=== PATIENT | female | born 1940 | race Caucasian/White ===

== ENCOUNTER → 2024-07-12 | Outpatient (CLI) | payer MEDICARE ==
[2024-07-12 19:07] LABS: Basophils # (A) 0.08 X 10*3/uL (0.00-0.10); Basophils % (A) 1.1 %; Eosinophils # (A) 0.15 X 10*3/uL (0.04-0.35); HCT 43.1 % (37.2-46.3); HGB 14.5 g/dL (12.0-15.0); Lymphocytes # (A) 2.25 X 10*3/uL (0.90-5.00); Lymphocytes % (A) 30.1 %; MCH 29.3 pg (27.0-32.0); MCHC 33.6 g/dL (32.0-37.0); MCV 87.1 FL (80.0-97.0); Mean Platelet Volume 10.6 FL (9.5-12.2); Monocytes # (A) 0.67 X 10*3/uL (0.20-1.00); NRBC Per 100 WBC 0 X 10*3/uL (0.00-0.01); Neutrophils # (A) 4.31 X 10*3/uL (1.80-7.70); Neutrophils % (A) 57.7 %; Platelet Count 232 X 10*3/uL (140-440); RBC 4.95 X 10*6/uL (4.10-5.20); RDW 12.6 % (11.5-14.5); WBC 7.47 X 10*3/uL (4.50-10.00)
[2024-07-12 19:10] LABS: BUN/Creat Ratio 20.71 Ratio (12.00-20.00); Blood Urea Nitrogen 14.5 mg/dL (9.0-27.0); Calcium 9.8 mg/dL (8.7-10.3); Carbon Dioxide 26.3 mmol/L (21.6-31.8); Chloride 99 mmol/L (96-109); Glucose 95 mg/dL (70-110); INR 0.95 sec (0.93-1.11); Potassium 4.5 mmol/L (3.5-5.5); Prothrombin Time 10.9 sec (9.9-11.9); Sodium 137 mmol/L (135-145)
== END | disposition home or self-care (01) ==
LOC: LABPAT 13:57
PROVIDERS: ATTEND Orthopaedic Surgery
DX: Z01.812 Encounter for preprocedural laboratory examination (principal); Z22.322 Carrier or suspected carrier of Methicillin resistant Staphylococcus aureus; S42.291K Other displaced fracture of upper end of right humerus, subsequent encounter for fracture with nonunion
CPT/HCPCS: 36415; 80048; 85025; 85610; 87070

== ENCOUNTER 2024-07-27 06:47 | Day surgery (SDC) | payer MEDICARE ==
--- NOTE | 2024-07-26 10:11 | P.HPOR ---
History of Present Illness H&P Date: 07/26/24 Chief Complaint: Right shoulder pain and weakness The patient is an 84-year-old female who presents with right shoulder pain and weakness after sustaining a right proximal humerus fracture 5 years ago that was treated in a sling. She is unable to raise her arm overhead. She notes pain with any attempted motion. She notes significant functional deficits. Review of Systems Per HPI Past Medical History Past Medical History: Asthma, Cancer, Hypertension, Musculoskeletal Disorder, Osteoarthritis (OA), Pulmonary Embolus (PE), Skin Disorder Additional Past Medical History / Comment(s): environmental allergies-gets an allergy shot weekly, hx. skin cancer, hx. of falls, fx. pelvis & humerus 6 yrs. ago PE @that time, osteoporosis History of Any Multi-Drug Resistant Organisms: None Reported Past Surgical History: Ear Surgery, Orthopedic Surgery, Tonsillectomy Additional Past Surgical History / Comment(s): ORIF right wrist, ear surg. in past for mastoiditis, D & C, skin cancer removed from face, nasal surg., cataracts removed Past Anesthesia/Blood Transfusion Reactions: Previous Problems w/ Anesthesia Additional Past Anesthesia/Blood Transfusion Reaction / Comment(s): elevated BP after one of nasal surgeries Smoking Status: Former smoker - Past Family History Mother Family Medical History: No Reported History Medications and Allergies Home Medications Medication Instructions Recorded Confirmed Type Albuterol Inhaler [Ventolin Hfa 1 - 2 puff INHALATION Q6H PRN 06/01/24 07/24/24 History Inhaler] Celecoxib [CeleBREX] 200 mg PO DAILY PRN 06/01/24 07/24/24 History Cetirizine HCl [Zyrtec] 10 mg PO DAILY 06/01/24 07/24/24 History Enalapril [Vasotec] 20 mg PO DAILY 06/01/24 07/24/24 History Sertraline [Zoloft] 50 mg PO DAILY 06/01/24 07/24/24 History Acetaminophen [Tylenol] 650 mg PO Q6H 07/24/24 07/24/24 History Loperamide HCl [Imodium A-D] 2 mg PO BID PRN 07/24/24 07/24/24 History Allergies Allergy/AdvReac Type Severity Reaction Status Date / Time No Known Allergies Allergy Verified 07/24/24 17:33 Physical Examination - Shoulder right Appearance: effusion Tenderness with palpation: anterior, bicipital groove Pain: other (Pain with any attempted range of motion) ROM: forward flexion: 20 degrees ROM: internal rotation: 0 ROM: external rotation: 10 degrees Tests: internal impingement tests: positive, external impingment tests: positive Results The patient is a well-developed well-nourished female approximately 5 foot 3, 140 pounds of mesomorphic habitus. HEENT exam is nonfocal, neck is supple. She is tender about the right glenohumeral joint and proximal humerus. She has limited active range of motion. Impingement test, Neer test are positive. Her distal neurovascular exam otherwise appears intact in the right upper extremity. - Diagnostic results Shoulder x-ray: image reviewed (X-rays of the right shoulder obtained the office show a proximal humeral nonunion with significant displacement.) Assessment and Plan Assessment: Right proximal humeral nonunionsymptomatic Plan: I talked to the patient at length regarding her condition along with treatment options. At this point she is quite limited because of pain along with significant weakness and functional deficits despite attempted conservative measures. After a thorough discussion she opts to proceed with surgery. We will plan to proceed with a right reverse total shoulder arthroplasty. Risks and benefits were discussed at length in layman's terms. We will likely keep the patient for 23 or hold postoperatively.
[~2024-07-27 06:47] MED LIST: TRANEXAMIC 1,000 MG/100ML-NACL 1,000 MG in SALINE 1 100ML.BAG IVPB PRN
[2024-07-27] MEDS ORDERED: HYDROmorphone 0.5 MG/0.5 ML SYRINGE IVP PRN ×2 (07:00→09:43)
[2024-07-27] MEDS ORDERED: MIDAZOLAM 2 MG/2 ML VIAL IV PRN (07:00)
[2024-07-27] MEDS: ACETAMINOPHEN TAB 500 MG TAB PO PRN (07:03)
[2024-07-27] MEDS: LACTATED RINGERS 1,000 ML IV SCH (07:03)
[2024-07-27] MEDS: MELOXICAM 7.5 MG TAB PO PRN (07:03)
[2024-07-27] MEDS: ONDANSETRON 4 MG/2 ML VIAL IVP ONE (07:04)
[2024-07-27] MEDS: DEXAMETHASONE SOD PHOSPHATE 4 MG/ML 1 ML VIAL IV ONE (07:04)
[2024-07-27] MEDS: IV FLUID CONTINUATION 1,000 ML IV ONE ×2 (07:05→11:45)
[2024-07-27] MEDS: fentaNYL (PF) 50 MCG/ML 2 ML AMP IVP STA (07:11)
--- NOTE | 2024-07-27 07:22 | P.ANPRN ---
Procedure Note - Anesthesia - Nerve Block Performed Right Interscalene Single Time Out Performed: Yes Date of Procedure: 07/27/24 Procedure Start Time: :11 Procedure Stop Time: 07:16 Location of Patient: PreOp Indication: Acute Post-Operative Pain, Analgesia, Requested by Surgeon Sedation Type: Sedate with meaningful contact maintained Preparation: Sterile Prep Position: Sitting Catheter: None Needle Types: Pajunk Needle Gauge: 21 Ultrasound used to visualize needle placement: Yes Ultrasound used to observe medication spread: Yes Injectate: 0.5% Ropivacaine (see comment for volume) ([id number]. Negative stimulation @0.5MA) Blood Aspirated: No Pain Paresthesia on Injection Noted: No Resistance on Injection: Normal Image Stored and Saved: Yes Events: Uneventful and Well Tolerated
[2024-07-27] MEDS ORDERED: SUCCINYLCHOLINE CHLORIDE 200 MG/10 ML VIAL IV ONE (07:32)
[2024-07-27] MEDS ORDERED: ROCURONIUM 10 MG/ML (5 ML VIAL) IV ONE (07:32)
[2024-07-27] MEDS ORDERED: PHENYLEPHRINE 10 MG/ML VIAL ONE (07:32)
[2024-07-27] MEDS ORDERED: DEXAMETHASONE SOD PHOSPHATE 4 MG/ML 1 ML VIAL ONE (07:32)
[2024-07-27] MEDS ORDERED: NEOSTIGMINE 1 MG/ML 10 ML VIAL ONE (07:32)
[2024-07-27] MEDS ORDERED: GLYCOPYRROLATE 0.2 MG/ML 2 ML VIAL ONE (07:32)
[2024-07-27] MEDS ORDERED: TRANEXAMIC 1,000 MG/100ML-NACL PREMIX BAG ONE (07:32)
[2024-07-27] MEDS ORDERED: PROPOFOL 10 MG/ML 20 ML VIAL IV ONE (07:32)
[2024-07-27] MEDS ORDERED: fentaNYL (PF) 50 MCG/ML 2 ML AMP ONE (07:32)
[2024-07-27] MEDS ORDERED: LIDOCAINE 1% INJ 10MG/ML (20 ML MDV) ONE (07:32)
[2024-07-27] MEDS ORDERED: ROPIVACAINE 5 MG/ML 30 ML VIAL ONE (07:32)
[2024-07-27] MEDS: ceFAZolin 2 GM in DEXTROSE 5% IN WATER 50 ML IVPB PRN (07:37)
[2024-07-27] MEDS ORDERED: SENNOSIDES-DOCUSATE SODIUM 1 EACH TAB PO PRN (09:43)
[2024-07-27] MEDS ORDERED: hydrOXYzine pamoate 25 MG CAP PO PRN (09:43)
--- NOTE | 2024-07-27 10:08 | P.OP ---
Date of Procedure: 07/27/24 Preoperative Diagnosis: Symptomatic right proximal humeral nonunion Postoperative Diagnosis: Same Procedure(s) Performed: Right reverse total shoulder arthroplasty Implants: [employer] Xtend size 8 cemented longstem, size 1 epiphysis, 38 mm standard glenosphere with standard baseplate, 38+6 articular surface Anesthesia: guillermina MCGEE Surgeon: Eric León Senior Project Architect #1: Marlon Addison Estimated Blood Loss (ml): 200 Pathology: none sent Condition: stable Disposition: PACU Indications for Procedure: The patient is an 84-year-old female who presents after falling 5 years ago sustaining a proximal humerus fracture that went on to nonunion with persistent pain and inability to raise her arm. A discussion of the risks and benefits of operative intervention versus continued conservative measures was made with the patient. She opted to proceed with surgery. Operative risks include infection, neurovascular injury, development of blood clots, fracture, instability, possible component loosening/failure and possible need for subsequent procedures was discussed. Informed consent was obtained. Operative Findings: As below Description of Procedure: The patient was brought to the operating room, and after induction of general anesthesia was placed in a beachchair position. The bony prominences were appropriately padded. The right upper extremity was prepped and draped in normal fashion. The bony outlines the coracoid process, distal clavicle, and acromion were outlined with a skin marker. A pulse centimeter deltopectoral incision was made lateral to the coracoid process. Skin was incised sharply. Subcutaneous tissues were divided bluntly. Electrocautery was used for hemostasis. The cephalic vein was identified and gently retracted laterally with the deltoid. The deltopectoral was bluntly developed. Subdeltoid adhesions were then released. The self-retaining retractor was placed. The conjoined tendon was retracted medially and the deltoid laterally. The proximal humeral fragment was then identified. A sagittal saw was used to separate the greater and lesser tuberosities. The head fragment was excised. The tuberosities were tagged with #2 Ethibond suture. Attention was then paid towards preparing the glenoid. An anterior and posterior retractors placed. The labrum was released from the 12-6 o'clock position. Remaining biceps was removed as well. A guidepin was placed in the inferior aspect of the glenoid with the guide slightly tilting inferior. The reamer was used down to a bleeding bony surface. The central peg hole was drilled. The standard baseplate was inserted with good purchase. Inferior, superior, and posterior locking screws the appropriate length were placed. Good purchase was obtained. The 38 mm glenosphere was inserted over a guidewire. This was fully seated. Care was taken to avoid any soft tissue interposition. Attention was then paid towards preparing the proximal humerus. The canal was reamed by hand up to a size 8 planning on a long stem. A size 8 stem with a size 1 epiphysis was placed and 20 of retroversion. Trial reduction was obtained with a 38 mm + 6 articular surface. The shoulder was taken through range of motion. He was felt to be stable in flexion and extension with internal and external rotation. I felt there was adequate christian of soft tissue tension judging off the conjoined tendon. The shoulder was gently dislocated. The trial components were then removed. The final size 8 cemented long stem along with a size 1 epiphysis was fully seated. There was good rotational stability. The 38 mm + 6 articular surface was impacted. The shoulder again was gently reduced and taken through range of motion. Again it was felt to be stable in all planes. Pulsa tile lavage was utilized. The tuberosities were reattached to each other with #2 Ethibond suture. The rotator interval was closed in a similar fashion. The deltopectoral interval was closed with interrupted 2-0 Vicryl sutures. The skin was reapproximated with 3-0 subcuticular Prolene suture. Steri-Strips were applied. A sterile dressing was applied. A sling was placed. The patient was awoken from general anesthesia and transferred to recovery room in good condition. Blood loss was estimated at 200 mL. No complications were incurred. Sponge and needle counts were correct at the end the case. Marlon KAMARA assisted during the major components of the case to include exposure, glenoid and humeral preparation, implantation, and closure.
--- NOTE | 2024-07-27 10:17 | XR ---
EXAMINATION TYPE: XR shoulder limited RT DATE OF EXAM: 07/27/2024 10:13 AM COMPARISON: None. CLINICAL INDICATION: Female, 84 years old with history of s/p reverse right total shoulder arthroplas ty, pain TECHNIQUE: AP view(s) obtained. FINDINGS: Placement of a left shoulder prosthesis with glenoid and humeral components. Medullary kellie is present . Postsurgical soft tissue changes are evident. IMPRESSION: 1. Post right shoulder prosthesis placement [facility], , 07/27/2024 10:15 AM
[2024-07-27 15:37] LABS: Basophils # (A) 0.02 10*3/uL (0.00-0.10); Basophils % (A) 0.1 %; HCT 35.8 % (37.2-46.3); HGB 12.2 g/dL (12.0-15.0); Lymphocytes # (A) 0.57 10*3/uL (0.90-5.00); Lymphocytes % (A) 3.9 %; MCHC 34.1 g/dL (32.0-37.0); Monocytes # (A) 0.36 10*3/uL (0.20-1.00); Monocytes % (A) 2.5 %; Neutrophils # (A) 13.52 10*3/uL (1.80-7.70); Neutrophils % (A) 93.2 %; Platelet Count 194 10*3/uL (140-440); RBC 4.07 10*6/uL (4.10-5.20); RDW 12.7 % (11.5-14.5); WBC 14.52 10*3/uL (4.50-10.00)
[2024-07-27] MEDS: ceFAZolin 2 GM in DEXTROSE 5% IN WATER 50 ML IVPB SCH (17:19)
--- NOTE | 2024-07-27 21:10 | P.CONS ---
History of Present Illness - Reason for Consult Consult date: 07/27/24 Medical management Requesting physician: Eric León - Chief Complaint Right shoulder surgery - History of Present Illness Very pleasant 84-year-old patient follows with Dr. Espinoza. Chronic medical conditions include COPD, hypertension, osteoarthritis, anxiety depression. 5 years ago patient had a proximal humerus fracture that was treated with nonsurgical intervention. She has significant functional deficits. Now patient is undergone right reverse total shoulder arthroplasty. Right arm in a sling. Some pain is present. No nausea vomiting. Denies any cardiac history. Review of systems: GEN.: None EYES: None HEENT: None NECK: None RESPIRATORY: Chronic intermittent clear sputum production e CARDIOVASCULAR: None GASTROINTESTINAL: None GENITOURINARY: None MUSCULOSKELETAL: Joint pains LYMPHATICS: None HEMATOLOGICAL: None PSYCHIATRY: None NEUROLOGICAL: None Social history: Lives alone. Smoked for 35 years 1 pack a day. Stopped a while ago. Alcohol rarely Physical examination: VITAL SIGNS: 97.9, 81, 17, 130 x 71, 95% room air GENERAL: BMI 25, lying bed awake comfortable. EYES: Pupils equal. Conjunctiva renay l. HEENT: External appearance of nose and ears normal, oral cavity grossly normal. NECK: JVD not raised; masses not palpable. HEART: First and second heart sounds are normal; no edema. LUNGS: Respiratory rate normal; decreased breath sounds. ABDOMEN: Soft, nontender, liver spleen not palpable, no masses palpable. PSYCH: Alert and oriented x3; mood and affect renay l. MUSCULOSKELETAL:No Clubbing/cyanosis;muscles-grossly intact. OA in many joint specially the hand. Dressing over the right shoulder. Right arm in a sling NEUROLOGICAL: Cranial nerves grossly intact; no facial asymmetry, power and sensation grossly intact. LYMPHATICS: No lymph nodes palpable in the axilla and neck INVESTIGATIONS, reviewed in the clinical context: July 27, 2024: White count 14.5 hemoglobin 12.2 platelets 194 July 12: Creatinine 0.7 Assessment plan: - Right reverse total shoulder arthroplasty by Dr. Armando León. Pain controlled. Right arm in a sling. - Depression and anxiety Zoloft 50 mg a day - Essential hypertension Vasotec 20 mg a day - COPD in a prior smoker Ventolin as needed - Primary osteoarthritis of multiple joints Pain medication as needed - Full code Care was discussed with patient. Questions answered. Aspirin for DVT prophylaxis. Did get IV cefazolin for infection prophylaxis. And 1 dose of Decadron. Thank you Dr. León Past Medical History Past Medical History: Asthma, Cancer, Hypertension, Musculoskeletal Disorder, Osteoarthritis (OA), Pulmonary Embolus (PE), Skin Disorder Additional Past Medical History / Comment(s): environmental allergies-gets an allergy shot weekly, hx. skin cancer, hx. of falls, fx. pelvis & humerus 6 yrs. ago PE @that time, osteoporosis History of Any Multi-Drug Resistant Organisms: None Reported Past Surgical History: Ear Surgery, Orthopedic Surgery, Tonsillectomy Additional Past Surgical History / Comment(s): ORIF right wrist, ear surg. in past for mastoiditis, D & C, skin cancer removed from face, nasal surg., cataracts removed Past Anesthesia/Blood Transfusion Reactions: Previous Problems w/ Anesthesia Additional Past Anesthesia/Blood Transfusion Reaction / Comm: elevated BP after one of nasal surgeries Past Psychological History: Anxiety, Depression Smoking Status: Former smoker Past Alcohol Use History: Rare Additional Past Alcohol Use History / Comment(s): quit smoking @age 46, smoked for 35 yrs., 1ppd Past Drug Use History: None Reported - Past Family History Mother Family Medical History: No Reported History Medications and Allergies Home Medications Medication Instructions Recorded Confirmed Type Albuterol Inhaler [Ventolin Hfa 1 - 2 puff INHALATION Q6H PRN 06/01/24 07/24/24 History Inhaler] Celecoxib [CeleBREX] 200 mg PO DAILY PRN 06/01/24 07/24/24 History Cetirizine HCl [Zyrtec] 10 mg PO DAILY 06/01/24 07/24/24 History Enalapril [Vasotec] 20 mg PO DAILY 06/01/24 07/24/24 History Sertraline [Zoloft] 50 mg PO DAILY 06/01/24 07/24/24 History Acetaminophen [Tylenol] 650 mg PO Q6H 07/24/24 07/24/24 History Loperamide HCl [Imodium A-D] 2 mg PO BID PRN 07/24/24 07/24/24 History Aspirin [Adult Low Dose Aspirin EC] 81 mg PO BID #60 tab 07/27/24 Rx Sennosides/Docusate Sodium [Senna 1 each PO DAILY #20 capsule 07/27/24 Rx Plus 8.6-50 mg Softgel] Allergies Allergy/AdvReac Type Severity Reaction Status Date / Time No Known Allergies Allergy Verified 07/27/24 07:10 Physical Exam Vitals: Vital Signs Temp Pulse Pulse Resp BP BP Pulse Ox 07/27/24 19:24 97.9 F 81 17 130/71 95 07/27/24 16:25 86 145/79 95 07/27/24 16:10 85 122/75 94 L 07/27/24 15:55 92 127/80 95 07/27/24 15:40 91 147/113 91 L 07/27/24 15:24 97 169/93 95 07/27/24 15:09 79 147/71 94 L 07/27/24 14:54 80 139/76 92 L 07/27/24 14:39 97.3 F L 82 18 157/85 93 L 07/27/24 13:15 68 16 124/78 96 07/27/24 12:45 71 16 126/68 94 L 07/27/24 12:30 67 16 133/70 96 07/27/24 12:15 68 16 119/67 96 07/27/24 12:00 58 L 16 128/75 97 07/27/24 11:45 60 16 127/67 94 L 07/27/24 11:30 72 16 136/76 94 L 07/27/24 11:15 69 16 129/73 98 07/27/24 10:58 70 16 120/60 95 07/27/24 10:43 72 16 129/80 96 07/27/24 10:28 57 L 14 82/56 87 L 07/27/24 10:13 123 H 18 144/73 98 07/27/24 09:58 97 F L 90 16 151/79 98 07/27/24 07:20 77 16 163/81 98 07/27/24 07:00 98.8 F 78 16 211/91 97 Intake and Output 07/27/24 07/27/24 07/27/24 06:59 14:59 22:59 Intake Total 1125 Output Total 200 Balance 925 Intake: IV 1125 Output: Estimated Blood Loss 200 Other: # Voids 1 # Bowel Movements 1 Weight 64.1 kg 64.1 kg Results CBC & Chem 7: 07/27/24 15:15 Labs: Abnormal Lab Results - Last 24 Hours (Table) 07/27/24 Range/Units 15:15 WBC 14.52 H (4.50-10.00) 10*3/uL RBC 4.07 L (4.10-5.20) 10*6/uL Hct 35.8 L (37.2-46.3) % Immature Gran # 0.05 H (0.00-0.04) 10*3/uL Neutrophils # 13.52 H (1.80-7.70) 10*3/uL Lymphocytes # 0.57 L (0.90-5.00) 10*3/uL Eosinophils # 0.00 L (0.04-0.35) 10*3/uL
[2024-07-27] MEDS: HYDROcodone/APAP 5-325MG 1 EACH TAB PO PRN (22:05)
[2024-07-27] MEDS: ASPIRIN 81 MG PO SCH (22:06)
[2024-07-28 01:58] VITALS: TEMP 98.3
[2024-07-28] MEDS: HYDROmorphone 0.5 MG/0.5 ML SYRINGE IVP PRN (03:44)
[2024-07-28] MEDS: SERTRALINE 50 MG TAB PO SCH (08:25)
[2024-07-28] MEDS: lisinopriL 20 MG TAB PO SCH (08:25)
[2024-07-28] MEDS: LORATADINE 10 MG TAB PO SCH (08:25)
[2024-07-28] MEDS: HYDROcodone/APAP 5-325MG 1 EACH TAB PO PRN (08:30)
--- NOTE | 2024-07-28 08:55 | P.DS ---
Providers Date of admission: 07/27/2024 Expected date of discharge: 07/28/24 Attending physician: Eric León Consults: 07/27/24 09:43 Consult Physician Routine Consulting Provider: Lux Espinoza Reason/Comments: medical management s/p reverse right total shoulder arthroplasty Do you want consulting provider notified?: Yes Primary care physician: Lux Espinoza Hospital Course: Date of admission: 07/27/2024 Date of discharge: 07/28/2024 Admission diagnosis: Symptomatic right proximal humeral nonunion Attending physician: Dr. León Surgical procedures: Reverse right total shoulder arthroplasty Brief history: Patient is a 84-year-old female with a history of symptomatic right proximal humeral nonunion. At this point patient has failed conservative treatment measures and has opted to proceed with a elective reverse right total shoulder arthroplasty. Hospital course: Details of patient's surgery can be found in operative report. Patient tolerated the procedure well and was subsequently transported to orthopedic floor. Patient's orthopeidc and medical care was provided daily. Patient had daily laboratory tests performed for evaluation of overall blood counts. Patient had daily physical therapy to include strengthening range of motion as well as education with walker ambulation. Patient was treated with aspirin for their postoperative DVT prophylaxis during their inpatient stay. Patient was noted to have a relatively uneventful postoperative course. Patient reported satisfactory pain control with oral pain medications by postoperative day 1. Patient showed satisfactory progress with physical therapy. Patient moved steadily through the program and had no difficulty meeting the goals by postoperative day 1. Given patient's otherwise satisfactory course and having met physical therapy goals, plan is to discharge patient home on postoperative day 1. Discharge condition/disposition: Patient will be discharged home in stable condition. Discharge medications: Instructions are given on resumption of patient's normal daily medications per primary care recommendation, in addition patient will be prescribed [place]; aspirin 81 mg twice daily; senna Orthopedic Discharge Instructions: 1. Wound care and infection precautions, keep incision dry and covered while showering, no lotions, creams, moisturizers. No soaking, pools, hot tubs. Do not scrub over incision. 2. Nonweightbearing right upper extremity until follow-up. 3. Ice when necessary. Do not exceed 20 minutes per hour with ice pack. 4. Utilize sling to right upper extremity until seen at first follow up appointment. 5. Pain meds and anticoagulants per prescription. 6. Pain medication has potential to cause constipation. Increase oral fluid and fiber intake. Contact primary care provider if you have not had a bowel movement within 48 hours after discharge. 7. No anti-inflammatory medication until discussed at first post operative visit, this including Motrin, Aleve, Mobic, Diclofenac. 8. Follow up in office at 2 weeks postop with Scott Sanz PA-C / Marlon Addison PA-C 9. Follow up with your primary care doctor 7-10 days after discharge. 10. Contact [facility] with any questions, . Keep incision clean, dry, intact. While showering, cover dressing with Saran wrap. Keep fusion tape on until follow-up appointment in office in 2 weeks Assessment: Symptomatic right proximal humeral nonunion Procedures: Right reverse total shoulder arthroplasty Patient Condition at Discharge: Good Plan - Discharge Summary Discharge Rx Participant: Yes New Discharge Prescriptions: New Aspirin [Adult Low Dose Aspirin EC] 81 mg PO BID #60 tab HYDROcodone/APAP 5-325MG [[place] 5-325] 1 - 2 tab PO Q6HR PRN #32 tab PRN Reason: Pain Sennosides/Docusate Sodium [Senna Plus 8.6-50 mg Softgel] 1 each PO DAILY #20 capsule No Action Celecoxib [CeleBREX] 200 mg PO DAILY PRN PRN Reason: Pain Albuterol Inhaler [Ventolin Hfa Inhaler] 1 - 2 puff INHALATION Q6H PRN PRN Reason: Shortness Of Breath Acetaminophen [Tylenol] 650 mg PO Q6H Sertraline [Zoloft] 50 mg PO DAILY Enalapril [Vasotec] 20 mg PO DAILY Cetirizine HCl [Zyrtec] 10 mg PO DAILY Loperamide HCl [Imodium A-D] 2 mg PO BID PRN PRN Reason: Diarrhea Discharge Medication List Albuterol Inhaler [Ventolin Hfa Inhaler] 1 - 2 puff INHALATION Q6H PRN 06/01/24 [History] Celecoxib [CeleBREX] 200 mg PO DAILY PRN 06/01/24 [History] Cetirizine HCl [Zyrtec] 10 mg PO DAILY 06/01/24 [History] Enalapril [Vasotec] 20 mg PO DAILY 06/01/24 [History] Sertraline [Zoloft] 50 mg PO DAILY 06/01/24 [History] Acetaminophen [Tylenol] 650 mg PO Q6H 07/24/24 [History] Loperamide HCl [Imodium A-D] 2 mg PO BID PRN 07/24/24 [History] Aspirin [Adult Low Dose Aspirin EC] 81 mg PO BID #60 tab 07/27/24 [Rx] Sennosides/Docusate Sodium [Senna Plus 8.6-50 mg Softgel] 1 each PO DAILY #20 capsule 07/27/24 [Rx] HYDROcodone/APAP 5-325MG [[place] 5-325] 1 - 2 tab PO Q6HR PRN #32 tab 07/28/24 [Rx] Follow up Appointment(s)/Referral(s): Marlon Addison PAC [PHYSICIAN AGRICULTURE LABORATORY TECHNICIAN] - 2 Weeks Patient Instructions/Handouts: Shoulder Arthroplasty (GEN) Activity/Diet/Wound Care/Special Instructions: Orthopedic Discharge Instructions: 1. Wound care and infection precautions, keep incision dry and covered while showering, no lotions, creams, moisturizers. No soaking, pools, hot tubs. Do not scrub over incision. 2. Nonweightbearing right upper extremity until follow-up. 3. Ice when necessary. Do not exceed 20 minutes per hour with ice pack. 4. Utilize sling to right upper extremity until seen at first follow up appointment. 5. Pain meds and anticoagulants per prescription. 6. Pain medication has potential to cause constipation. Increase oral fluid and fiber intake. Contact primary care provider if you have not had a bowel movement within 48 hours after discharge. 7. No anti-inflammatory medication until discussed at first post operative visit, this including Motrin, Aleve, Mobic, Diclofenac. 8. Follow up in office at 2 weeks postop with Scott Sanz PA-C / Marlon Addison PA-C 9. Follow up with your primary care doctor 7-10 days after discharge. 10. Contact [facility] with any questions, . Keep incision clean, dry, intact. While showering, cover dressing with Saran wrap. Keep fusion tape on until follow-up appointment in office in 2 weeks Discharge Disposition: HOME SELF-CARE
--- NOTE | 2024-07-28 08:58 | P.PN ---
Subjective Progress Note Date: 07/28/24 Principal diagnosis: Symptomatic right proximal humeral nonunion Patient was seen at bedside this morning sitting up in chair with sling present to right upper extremity and bulky dressing in place over right shoulder. Patient says she has been up walking around the room under her own power and has been urinating without any issue since surgery. Patient says she is looking f orward to going home today. Patient says she will be able to have some family/friends help her out while she is home initially over the first couple days. Patient says she fairly independent at baseline. Patient denies any other issues at this time. Objective - Vital Signs Vital signs: Vital Signs Temp 98.3 F 07/28/24 01:58 Pulse 77 07/28/24 01:58 Resp 17 07/28/24 01:58 BP 128/84 07/28/24 01:58 Pulse Ox 89 L 07/28/24 01:58 FiO2 Intake & Output 07/27/24 07/28/24 07/28/24 18:59 06:59 18:59 Intake Total 1125 Output Total 200 Balance 925 Weight 64.1 kg Intake: IV 1125 Output: Estimated Blood Loss 200 Other: Voiding Method Toilet # Voids 1 0 # Bowel Movements 1 - Exam Right shoulder: Incision is clean, dry, and intact. The bulky dressing is in good condition. There is minimal soft tissue swelling and ecchymosis surrounding the medial and lateral aspects of the incision. Calf is soft, no tenderness with palpation. Plantar flexion, dorsiflexion, EHL, FHL are intact. Sensory exam to light touch throughout the extremity is intact, dorsal pedis pulses 2+. - Labs CBC & Chem 7: 07/27/24 15:15 Labs: Abnormal Lab Results - Last 24 Hours (Table) 07/27/24 Range/Units 15:15 WBC 14.52 H (4.50-10.00) 10*3/uL RBC 4.07 L (4.10-5.20) 10*6/uL Hct 35.8 L (37.2-46.3) % Immature Gran # 0.05 H (0.00-0.04) 10*3/uL Neutrophils # 13.52 H (1.80-7.70) 10*3/uL Lymphocytes # 0.57 L (0.90-5.00) 10*3/uL Eosinophils # 0.00 L (0.04-0.35) 10*3/uL Assessment and Plan Assessment: Symptomatic right proximal humeral nonunion Postop day 1 status post reverse right total shoulder arthroplasty Plan: 1. Symptomatic right proximal humeral nonunion -surgery performed yesterday, 07/27/2024reverse right total shoulder arthroplasty. Patient stable bedside this morning with sling present to right upper extremity. Dressing in place over right shoulder. Dressing appears to be clean, dry, intact. Pain under well-controlled with Hecker. Continue aspirin twice a day for DVT prophylaxis. Discharge patient home today with home care. 2. Appreciate medical management 3. Pain management -Hecker 4. DVT prophylaxis -aspirin 81 mg twice daily 5. GI prophylaxis -senna 6. PT/OT -nonweightbearing right upper extremity. Maintain in sling 7. Encourage incentive spirometer use 8. Discharge planning -discharge home today with home care. Time with Patient: Less than 30
[2024-07-28 09:33] VITALS: RESP 18
[2024-07-28 10:38] VITALS: BP 130/68; PULSE 74
--- NOTE | 2024-07-28 19:16 | P.PN ---
Progress Note - Text Progress Note Date: 07/28/24 - Chief Complaint Right shoulder surgery - History of Present Illness Very pleasant 84-year-old patient follows with Dr. Espinoza. Chronic medical conditions include COPD, hypertension, osteoarthritis, anxiety depression. 5 years ago patient had a proximal humerus fracture that was treated with nonsurgical intervention. She has significant functional deficits. Now patient is undergone right reverse total shoulder arthroplasty. Right arm in a sling. Some pain is present. No nausea vomiting. Denies any cardiac history. July 28: Up in a recliner. Eating well. No new issues. Son at the bedside. Questions answered. Discussed narcotics in view of side effects. Incentive spirometry. Social history: Lives alone. Smoked for 35 years 1 pack a day. Stopped a while ago. Alcohol rarely Physical examination: VITAL SIGNS: 98.3, 74, 17, 130 x 68, 92% on 2 L GENERAL: BMI 25, l up in the chair, comfortable EYES: Pupils equal. Conjunctiva renay l. HEENT: External appearance of nose and ears normal, oral cavity grossly normal. NECK: JVD not raised; masses not palpable. HEART: First and second heart sounds are normal; no edema. LUNGS: Respiratory rate normal; decreased breath sounds. ABDOMEN: Soft, nontender, liver spleen not palpable, no masses palpable. PSYCH: Alert and oriented x3; mood and affect renay l. MUSCULOSKELETAL:No Clubbing/cyanosis;muscles-grossly intact. OA in many joint specially the hand. Dressing over the right shoulder. Right arm in a sling INVESTIGATIONS, reviewed in the clinical context: July 27, 2024: White count 14.5 hemoglobin 12.2 platelets 194 July 12: Creatinine 0.7 Assessment plan: - Right reverse total shoulder arthroplasty by Dr. Armando León. Pain controlled. Right arm in a sling. - Depression and anxiety Zoloft 50 mg a day - Essential hypertension Vasotec 20 mg a day - Leukocytosis from steroids received. Perioperatively. No clinical evidence of infection - COPD in a prior smoker Ventolin as needed - Primary osteoarthritis of multiple joints Pain medication as needed - Full code Discussed. Questions answered. Thank you Dr. León Past Medical History Past Medical History: Asthma, Cancer, Hypertension, Musculoskeletal Disorder, Osteoarthritis (OA), Pulmonary Embolus (PE), Skin Disorder Additional Past Medical History / Comment(s): environmental allergies-gets an allergy shot weekly, hx. skin cancer, hx. of falls, fx. pelvis & humerus 6 yrs. ago PE @that time, osteoporosis History of Any Multi-Drug Resistant Organisms: None Reported Past Surgical History: Ear Surgery, Orthopedic Surgery, Tonsillectomy Additional Past Surgical History / Comment(s): ORIF right wrist, ear surg. in past for mastoiditis, D & C, skin cancer removed from face, nasal surg., cataracts removed Past Anesthesia/Blood Transfusion Reactions: Previous Problems w/ Anesthesia Additional Past Anesthesia/Blood Transfusion Reaction / Comm: elevated BP after one of nasal surgeries Past Psychological History: Anxiety, Depression Smoking Status: Former smoker Past Alcohol Use History: Rare Additional Past Alcohol Use History / Comment(s): quit smoking @age 46, smoked for 35 yrs., 1ppd Past Drug Use History: None Reported
== END 2024-07-28 13:20 | disposition home or self-care (01) ==
LOC: OR 06:47 → 4SSUR 09:59 → OR 07-28 13:20
PROVIDERS: ATTEND Orthopaedic Surgery
DX: S42.201K Unspecified fracture of upper end of right humerus, subsequent encounter for fracture with nonunion (principal); M81.0 Age-related osteoporosis without current pathological fracture; M19.90 Unspecified osteoarthritis, unspecified site; J44.89 Other specified chronic obstructive pulmonary disease; I10 Essential (primary) hypertension; G89.18 Other acute postprocedural pain; F41.8 Other specified anxiety disorders; D72.829 Elevated white blood cell count, unspecified; Z79.82 Long term (current) use of aspirin; Z85.828 Personal history of other malignant neoplasm of skin; Z86.711 Personal history of pulmonary embolism; Z79.899 Other long term (current) drug therapy; Z87.891 Personal history of nicotine dependence; X58.XXXD Exposure to other specified factors, subsequent encounter
CPT/HCPCS: 64415; 85025; 73020; 23472; C1713; C1776; J1100; J0690; J2405; J3010; J1171